=== PATIENT | female | born 1950 | race Caucasian/White ===

== ENCOUNTER → 2016-08-11 | Outpatient (REF) | payer BC ==
[~2016-08-11] MED LIST: ALBU6.7H IH; ALBU8.5H6 IH; ASPI-586 PO; BISA5TAB49 PO; BUDE10.22 IH; HCT25T PO; HYDR-3754 PO; LEVO125C2 PO; METO-274 PO
== END ==
LOC: LAB 14:57
PROVIDERS: ATTEND Family Medicine
DX: R05 Cough (principal); R50.9 Fever, unspecified; R11.2 Nausea with vomiting, unspecified
CPT/HCPCS: 87040